=== PATIENT | female | born 1995 | race Caucasian/White ===

== ENCOUNTER 2016-09-29 06:43 | Emergency (ER) | payer OTHER ==
[2016-09-29] MEDS ORDERED: METOCLOPRAMIDE INJ 10MG/2ML VIAL (J2765) As Ordered ONE (07:28)
[2016-09-29 07:45] LABS: BASO # 0.1 K/mm3 (0.0-0.2); BASO % 0.9 % (0.0-1.0); EOS # 0.1 K/mm3 (0.0-0.50); EOS % 0.6 % (0.0-3.0); LARGE UNSTAINED CELL # 0.1 K/mm3 (0.0-0.4); LARGE UNSTAINED CELL % 0.6 % (0.0-4.0); LYMPH # 0.3 K/mm3 (1.5-6.5); LYMPH % 2.2 % (24.0-44.0); MEAN CORPUSCULAR HEMOGLOBIN 31.8 pg (27.0-33.0); MEAN CORPUSCULAR HGB CONC 34.9 g/dl (32.0-36.5); MEAN CORPUSCULAR VOLUME 91.2 fl (80.0-96.0); MONO # 0.5 K/mm3 (0.0-0.8); MONO % 4.5 % (0.0-5.0); NEUTROPHILS # 9.3 K/mm3 (1.8-7.7); NEUTROPHILS % 91.2 % (36.0-66.0); PLATELET COUNT, AUTOMATED 221 k/mm3 (150-450); RED CELL DISTRIBUTION WIDTH 12.2 % (11.5-14.5); WHITE BLOOD COUNT 10.2 K/mm3 (4.0-10.0)
[2016-09-29 08:01] LABS: ANION GAP 10 MEQ/L (8-16); BLOOD UREA NITROGEN 13 MG/DL (7-18); CALCIUM LEVEL 8.5 MG/DL (8.5-10.1); CARBON DIOXIDE LEVEL 25 MEQ/L (21-32); CHLORIDE LEVEL 105 MEQ/L (98-107); CREATININE FOR GFR 0.76 MG/DL (0.55-1.02); GLUCOSE, FASTING 102 MG/DL (70-105); POTASSIUM SERUM 3.6 MEQ/L (3.5-5.1); SODIUM LEVEL 140 MEQ/L (136-145)
--- NOTE | 2016-09-29 09:13 | EDDOCDS ---
Nurse's Notes [facility] Name: Nancy Hunt Age: 20 yrs Sex: Female : 1995 Arrival Date: 09/29/2016 Time: 06:43 Bed I2 / M2 Private MD: Diagnosis: Nausea and vomiting-likely viral gastroenteritis;Diarrhea, unspecified Presentation: 09/29 06:49 Presenting complaint: Patient states: she was awake every half hour throwing up. states nn1 she cannot keep down water. vomiting began at midnight, reports 6 episodes of vomiting. states last episode was at 0500. patient works at [employer]. Suicide/Homicide risk assessment- the patient denies having any suicidal and/or homicidal ideations and does not present with any other emotional, behavioral or mental health complaints. Status: The patient is a dependent. Transition of care: patient was not received from another setting of care. 06:49 Acuity: RADHA Level 3 nn1 06:49 Method Of Arrival: Walkin/Carried/Asstd nn1 Triage Assessment: 06:53 General: Appears in no apparent distress, Behavior is appropriate for age, cooperative. nn1 General: Patient reports recent exposure to resident at [employer] with Cdiff. Pain: Location: abdomen Pain currently is 6 out of 10 on a pain scale. HIV screening NA for this visit. The patient is triaged at the bedside. See Assessment in Nurses Notes section of ED record. Neurological: No deficits noted. Respiratory: Airway is patent Respiratory effort is even, unlabored, Respiratory pattern is regular, symmetrical. GI: Abdomen is non- distended Reports diarrhea, nausea, vomiting, intolerance of food, intolerance of fluids. GI: Bowel sounds present X 4 quads. Derm: Skin is pink, warm & dry. [employer]: 06:55 LMP 09/13/2016 nn1 Historical: - Allergies: No known drug Allergies; - Home Meds: 1. UTI medication - PMHx: UTI; - PSHx: Tonsillectomy; - Social history: Smoking status: Patient states was never smoker of tobacco. No barriers to communication noted, The patient speaks fluent Wallisian, Speaks appropriately for age. - Family history: Not pertinent. - : The pt / caregiver states he / she is not on anticoagulants. Home medication list is obtained from the patient. - Exposure Risk Screening:: None identified. Screenin:09 Screening information is obtained from the patient. Fall risk: No risks identified. k Assistance ADL's: requires no assistance with activities of daily living. Abuse/DV Screen: The patient / caregiver reports he/she is: not in a situation that causes fear, pain or injury. Nutritional screening: No deficits noted. Advance Directives: Currently, there is no health care proxy. There is no active DNR order. There is no living will. There is no Power of Prism Inspector. Advance directive information has not previously been placed in an [facility] medical record. Further advance directive information is declined. home support is adequate. Assessment: 07:09 General: Appears in no apparent distress, ski warm and dry color satisfactory. Moist k pink oral mucosa. Indicates diffuse abd discomfort without significant. increase with palpation. Abd soft and non distended with bowel sounds present x 4.. GI: Abdomen is flat, non- distended Bowel sounds present X 4 quads. Abd is soft X 4 quads Abd is tender to palpation in right upper quadrant, left upper quadrant, right lower quadrant and left lower quadrant. 08:00 General: Appears resting with eyes closed resp easy and regular.. jmk 09:10 General: Appears popsicle taken and retained. receptive to discharge. [facility] Vital Signs: 06:55 BP 103 / 60; Pulse 115; Resp 18; Temp 100.5(T); Pulse Ox 98% on R/A; Weight 68.04 kg; nn1 Height 5 ft. 4 in. (162.56 cm); Pain 7/10; 09:01 BP 95 / 60; Pulse 106; Resp 16; Temp 99.1(TE); Pulse Ox 96% on R/A; Pain 0/10; dem1 06:55 Body Mass Index 25.75 (68.04 kg, 162.56 cm) nn1 Vitals: 06:55 Log In Time: September 29, 2016 at 06:45. nn1 ED Course: 06:45 Patient visited by Erum Ching Reg. hs2 06:45 Patient moved to Waiting hs2 06:48 Patient moved to Triage 1 nn1 06:50 Triage Initiated nn1 07:02 Patient moved to I2 / M2 dwg 07:07 Stef Fairbanks PA-C is PHCP. ar2 07:07 Ned Mariee MD is Attending Physician. ar2 07:09 The patient / caregiver is instructed regarding the plan of care and ED course. jmk 07:11 Patient visited by Stef Fairbanks PA-C. ar2 07:30 Patient visited by Chin Alvarez. dem1 07:30 UA Sent. dem1 07:37 Inserted saline lock: 20 gauge in right antecubital area. jmk 08:36 [facility] [place] [place] Payment Agreement was scanned into [employer] and attached to record. mm15 08:56 Olviia [facility] [place] [facility] is Referral Physician. ar2 09:01 Patient visited by Chin Alvarez. dem1 09:10 Discontinued lock intact, bleeding controlled, pressure dressing applied, No jmk redness/swelling at site. No procedures done that require assistance. Administered Medications: 07:35 Drug: Metoclopramide 10 mg [metoclopramide 5 mg/mL injection solution] Route: IV; Rate: jmk 40 mg/hr; Infused Over: 15 mins; Site: right antecubital; 08:06 Follow up: IV Status: Completed infusion jmk 07:36 Drug: NS 0.9% 1000 ml Route: IV; Rate: bolus; Site: right antecubital; jmk Point of Care Testing: Urine : 07:30 hCG Reading: Negative; Control Reading: Positive; dem1 Ranges: Order Results: Lab Order: UA; SPEC'M 09/29/16 07:26 Test: APPEARANCE, URINE; Value: HAZY; Range: CLEAR; Status: F Test: COLOR, URINE; Value: YELLOW; Range: YELLOW; Status: F Test: PH,URINE; Value: 8.0; Range: 5.0-9.0; Units: UNITS; Status: F Test: SPECIFIC GRAVITY URINE AUTO; Value: 1.025; Range: 1.002-1.035; Status: F Test: PROTEIN, URINE AUTO; Value: 1+; Range: NEGATIVE; Abnormal: Above high normal; Units: mg/dL; Status: F Test: GLUCOSE, URINE (UA) AUTO; Value: NEGATIVE; Range: NEGATIVE; Units: mg/dL; Status: F Test: KETONE, URINE AUTO; Value: 2+; Range: NEGATIVE; Abnormal: Above high normal; Units: mg/dL; Status: F Test: UROBILINOGEN, URINE AUTO; Value: 0.2; Range: 0.0-2.0; Units: mg/dL; Status: F Test: BILIRUBIN, URINE AUTO; Value: NEGATIVE; Range: NEGATIVE; Status: F Test: NITRITE, URINE AUTO; Value: NEGATIVE; Range: NEGATIVE; Status: F Test: LEUKOCYTE ESTERASE, URINE AUTO; Value: 2+; Range: NEGATIVE; Abnormal: Above high normal; Status: F Test: BLOOD, URINE BLOOD; Value: NEGATIVE; Range: NEGATIVE; Status: F Test: WBC, URINE AUTO; Value: 8; Range: 0-3; Abnormal: Above high normal; Units: /HPF; Status: F Test: RBC, URINE AUTO; Value: 4; Range: 0-3; Abnormal: Above high normal; Units: /HPF; Status: F Test: BACTERIA, URINE AUTO; Value: NEGATIVE; Range: NEGATIVE; Status: F Test: SQUAMOUS EPITHELIAL CELL UR AU; Value: 12; Range: 0-6; Units: /HPF; Status: F Test: MUCUS, URINE; Value: SMALL; Range: NEGATIVE; Status: F Test: HYALINE CAST, URINE AUTO; Value: 0; Range: 0-1; Units: /LPF; Status: F Lab Order: CBC with Diff; SPEC'M 09/29/16 07:24 Test: WHITE BLOOD COUNT; Value: 10.2; Range: 4.0-10.0; Abnormal: Above high normal; Units: K/mm3; Status: F Test: RED BLOOD COUNT; Value: 4.06; Range: 4.00-5.40; Units: M/mm3; Status: F Test: HEMOGLOBIN; Value: 12.9; Range: 12.0-16.0; Units: g/dl; Status: F Test: HEMATOCRIT; Value: 37.1; Range: 36.0-47.0; Units: %; Status: F Test: MEAN CORPUSCULAR VOLUME; Value: 91.2; Range: 80.0-96.0; Units: fl; Status: F Test: MEAN CORPUSCULAR HEMOGLOBIN; Value: 31.8; Range: 27.0-33.0; Units: pg; Status: F Test: MEAN CORPUSCULAR HGB CONC; Value: 34.9; Range: 32.0-36.5; Units: g/dl; Status: F Test: RED CELL DISTRIBUTION WIDTH; Value: 12.2; Range: 11.5-14.5; Units: %; Status: F Test: PLATELET COUNT, AUTOMATED; Value: 221; Range: 150-450; Units: k/mm3; Status: F Test: NEUTROPHILS %; Value: 91.2; Range: 36.0-66.0; Abnormal: Above high normal; Units: %; Status: F Test: LYMPH %; Value: 2.2; Range: 24.0-44.0; Abnormal: Below low normal; Units: %; Status: F Test: MONO %; Value: 4.5; Range: 0.0-5.0; Units: %; Status: F Test: EOS %; Value: 0.6; Range: 0.0-3.0; Units: %; Status: F Test: BASO %; Value: 0.9; Range: 0.0-1.0; Units: %; Status: F Test: LARGE UNSTAINED CELL %; Value: 0.6; Range: 0.0-4.0; Units: %; Status: F Test: NEUTROPHILS #; Value: 9.3; Range: 1.8-7.7; Abnormal: Above high normal; Units: K/mm3; Status: F Test: LYMPH #; Value: 0.3; Range: 1.5-6.5; Abnormal: Below low normal; Units: K/mm3; Status: F Test: MONO #; Value: 0.5; Range: 0.0-0.8; Units: K/mm3; Status: F Test: EOS #; Value: 0.1; Range: 0.0-0.50; Units: K/mm3; Status: F Test: BASO #; Value: 0.1; Range: 0.0-0.2; Units: K/mm3; Status: F Test: LARGE UNSTAINED CELL #; Value: 0.1; Range: 0.0-0.4; Units: K/mm3; Status: F Lab Order: MED Profile; SPEC'M 09/29/16 07:24 Test: GLUCOSE, FASTING; Value: 102; Range: 70-105; Units: MG/DL; Status: F Test: BLOOD UREA NITROGEN; Value: 13; Range: 7-18; Units: MG/DL; Status: F Test: CREATININE FOR GFR; Value: 0.76; Range: 0.55-1.02; Units: MG/DL; Status: F Test: SODIUM LEVEL; Value: 140; Range: 136-145; Units: MEQ/L; Status: F Test: POTASSIUM SERUM; Value: 3.6; Range: 3.5-5.1; Units: MEQ/L; Status: F Test: CHLORIDE LEVEL; Value: 105; Range: 98-107; Units: MEQ/L; Status: F Test: CARBON DIOXIDE LEVEL; Value: 25; Range: 21-32; Units: MEQ/L; Status: F Test: ANION GAP; Value: 10; Range: 8-16; Units: MEQ/L; Status: F Test: CALCIUM LEVEL; Value: 8.5; Range: 8.5-10.1; Units: MG/DL; Status: F Outcome: 08:57 Discharge ordered by Provider. ar2 09:10 Discharge Assessment: Patient awake, alert and oriented x 3. No cognitive and/or k functional deficits noted. Patient verbalized understanding of disposition instructions. patient administered narcotics - no. The following High Risk Discharge criteria are identified: None. Discharged to home ambulatory. Condition: good. Discharge instructions given to patient, Instructed on discharge instructions, follow up and referral plans. medication usage, Demonstrated understanding of instructions, medications, Pt was receptive of discharge instructions/ teaching. Prescriptions given X 1. No special radiology studies were completed. Property :Personal belongings accompany Pt. 09:13 Patient left the ED. dorothy Signatures: Ronnie Lopez RN RN Lebron Gibson RN RN jmk Robertshaw, Aaron, PA-Darin PA-C ar2 Chin Alvarez1 Jayson Prieto mm15 Lorraine Drummond RN RN nn1 Erum Ching, Reg Reg hs2 MTDD
--- NOTE | 2016-09-29 09:13 | EDDOCDS ---
Physician Documentation [facility] Name: Nancy Hunt Age: 20 yrs Sex: Female : 1995 Arrival Date: 09/29/2016 Time: 06:43 Bed I2 / M2 Private MD: Disposition: 09/29/16 08:57 Discharged to Home/Self Care. Impression: Nausea and vomiting - likely viral gastroenteritis, Diarrhea, unspecified. - Condition is Stable. - Discharge Instructions: Viral Gastroenteritis. - Prescriptions for ZOFRAN ODT 4 mg - dissolve 1 tablet by ORAL route 4 times per day As needed do not chew, do not swallow whole; 10 tablet. - Medication Reconciliation, Local Pharmacy Hours form. - Follow up: [facility]; When: 2 - 3 days; Reason: Recheck today's complaints. Follow up: Emergency Department; When: As needed; Reason: Fever > 102F, Worsening of conditions. - Problem is new. - Symptoms have improved. Historical: - Allergies: No known drug Allergies; - Home Meds: 1. UTI medication - PMHx: UTI; - PSHx: Tonsillectomy; - Social history: Smoking status: Patient states was never smoker of tobacco. No barriers to communication noted, The patient speaks fluent Polish, Speaks appropriately for age. - Family history: Not pertinent. - : The pt / caregiver states he / she is not on anticoagulants. Home medication list is obtained from the patient. - Exposure Risk Screening:: None identified. 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 4 in. (162.56 cm); Pain 7/10; 09:01 BP 95 / 60; Pulse 106; Resp 16; Temp 99.1(TE); Pulse Ox 96% on R/A; Pain 0/10; dem1 06:55 Body Mass Index 25.75 (68.04 kg, 162.56 cm) nn1 MDM: 07:19 IV Saline Lock ordered. ar2 07:19 NS 0.9% 1000 ml IV at bolus once ordered. ar2 07:19 UCG by Nursing ordered. ar2 07:19 Metoclopramide 10 mg IV at 40 mg/hr once over 15 mins ordered. ar2 07:20 Stool samples ordered. ar2 07:20 UA Ordered. EDMS 07:20 CBC with Diff Ordered. EDMS 07:20 MED Profile Ordered. EDMS 07:50 Fluid Challenge ordered. ar2 07:56 Financial registration complete. mm15 08:02 UA Reviewed. ar2 08:02 CBC with Diff Reviewed. ar2 08:05 MED Profile Reviewed. ar2 08:36 [facility] Payment Agreement was scanned into [employer] and attached to record. mm15 Point of Care Testing: Urine : 07:30 hCG Reading: Negative; Control Reading: Positive; dem1 Ranges: Administered Medications: 07:35 Drug: Metoclopramide 10 mg [metoclopramide 5 mg/mL injection solution] Route: IV; Rate: jmk 40 mg/hr; Infused Over: 15 mins; Site: right antecubital; 08:06 Follow up: IV Status: Completed infusion [facility] 07:36 Drug: NS 0.9% 1000 ml Route: IV; Rate: bolus; Site: right antecubital; jmk Signatures: Dispatcher [employer] Lebron Franco,RN RN Stef Pennington PA-C PA-C ar2 Jayson Prieto mm15 Lorraine DrummondRN RN nn1 The chart was reviewed and I authenticate all verbal orders and agree with the evaluation and treatment provided.Attachments: 08:36 [facility] Payment Agreement mm15 MTDD
--- NOTE | 2016-10-01 10:13 | EDDOCDS ---
Physician Documentation [facility] Name: Nancy Hunt Age: 20 yrs Sex: Female : 1995 Arrival Date: 09/29/2016 Time: 06:43 Bed I2 / M2 Private MD: Disposition: 09/29/16 08:57 Discharged to Home/Self Care. Impression: Nausea and vomiting - likely viral gastroenteritis, Diarrhea, unspecified. - Condition is Stable. - Discharge Instructions: Viral Gastroenteritis. - Prescriptions for ZOFRAN ODT 4 mg - dissolve 1 tablet by ORAL route 4 times per day As needed do not chew, do not swallow whole; 10 tablet. - Medication Reconciliation, Local Pharmacy Hours form. - Follow up: [facility]; When: 2 - 3 days; Reason: Recheck today's complaints. Follow up: Emergency Department; When: As needed; Reason: Fever > 102F, Worsening of conditions. - Problem is new. - Symptoms have improved. Historical: - Allergies: No known drug Allergies; - Home Meds: 1. UTI medication - PMHx: UTI; - PSHx: Tonsillectomy; - Social history: Smoking status: Patient states was never smoker of tobacco. No barriers to communication noted, The patient speaks fluent Turkish, Speaks appropriately for age. - Family history: Not pertinent. - : The pt / caregiver states he / she is not on anticoagulants. Home medication list is obtained from the patient. - Exposure Risk Screening:: None identified. 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 4 in. (162.56 cm); Pain 7/10; 09:01 BP 95 / 60; Pulse 106; Resp 16; Temp 99.1(TE); Pulse Ox 96% on R/A; Pain 0/10; dem1 06:55 Body Mass Index 25.75 (68.04 kg, 162.56 cm) nn1 MDM: 07:19 IV Saline Lock ordered. ar2 07:19 NS 0.9% 1000 ml IV at bolus once ordered. ar2 07:19 UCG by Nursing ordered. ar2 07:19 Metoclopramide 10 mg IV at 40 mg/hr once over 15 mins ordered. ar2 07:20 Stool samples ordered. ar2 07:20 UA Ordered. EDMS 07:20 CBC with Diff Ordered. EDMS 07:20 MED Profile Ordered. EDMS 07:50 Fluid Challenge ordered. ar2 07:56 Financial registration complete. mm15 08:02 UA Reviewed. ar2 08:02 CBC with Diff Reviewed. ar2 08:05 MED Profile Reviewed. ar2 08:36 [facility] Payment Agreement was scanned into [employer] and attached to record. mm15 14:32 T-Sheet-- Draft Copy was scanned into [employer] and attached to record. gb Point of Care Testing: Urine : 07:30 hCG Reading: Negative; Control Reading: Positive; dem1 Ranges: Administered Medications: 07:35 Drug: Metoclopramide 10 mg [metoclopramide 5 mg/mL injection solution] Route: IV; Rate: jmk 40 mg/hr; Infused Over: 15 mins; Site: right antecubital; 08:06 Follow up: IV Status: Completed infusion k 07:36 Drug: NS 0.9% 1000 ml Route: IV; Rate: bolus; Site: right antecubital; [facility] Signatures: Dispatcher [employer] Lebron Franco,RN RN Donna Orourke, Reg Reg gb Stef Fairbanks, AWILDA PACarol ar2 Jayson Prieto mm15 Lorraine Drummond,CORINE RN nn1 The chart was reviewed and I authenticate all verbal orders and agree with the evaluation and treatment provided.Attachments: 08:36 [facility] Payment Agreement mm15 14:32 T-Sheet-- Draft Copy gb Chart Complete MTDD
--- NOTE | 2016-10-01 10:13 | EDDOCDS ---
Nurse's Notes [facility] Name: Nancy Hunt Age: 20 yrs Sex: Female : 1995 Arrival Date: 09/29/2016 Time: 06:43 Bed I2 / M2 Private MD: Diagnosis: Nausea and vomiting-likely viral gastroenteritis;Diarrhea, unspecified Presentation: 09/29 06:49 Presenting complaint: Patient states: she was awake every half hour throwing up. states nn1 she cannot keep down water. vomiting began at midnight, reports 6 episodes of vomiting. states last episode was at 0500. patient works at [employer]. Suicide/Homicide risk assessment- the patient denies having any suicidal and/or homicidal ideations and does not present with any other emotional, behavioral or mental health complaints. Status: The patient is a dependent. Transition of care: patient was not received from another setting of care. 06:49 Acuity: RADHA Level 3 nn1 06:49 Method Of Arrival: Walkin/Carried/Asstd nn1 Triage Assessment: 06:53 General: Appears in no apparent distress, Behavior is appropriate for age, cooperative. nn1 General: Patient reports recent exposure to resident at [employer] with Cdiff. Pain: Location: abdomen Pain currently is 6 out of 10 on a pain scale. HIV screening NA for this visit. The patient is triaged at the bedside. See Assessment in Nurses Notes section of ED record. Neurological: No deficits noted. Respiratory: Airway is patent Respiratory effort is even, unlabored, Respiratory pattern is regular, symmetrical. GI: Abdomen is non- distended Reports diarrhea, nausea, vomiting, intolerance of food, intolerance of fluids. GI: Bowel sounds present X 4 quads. Derm: Skin is pink, warm & dry. 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 UTI medication - PMHx: UTI; - PSHx: Tonsillectomy; - Social history: Smoking status: Patient states was never smoker of tobacco. No barriers to communication noted, The patient speaks fluent Cape Verdean, Speaks appropriately for age. - Family history: Not pertinent. - : The pt / caregiver states he / she is not on anticoagulants. Home medication list is obtained from the patient. - Exposure Risk Screening:: None identified. Screenin:09 Screening information is obtained from the patient. Fall risk: No risks identified. k Assistance ADL's: requires no assistance with activities of daily living. Abuse/DV Screen: The patient / caregiver reports he/she is: not in a situation that causes fear, pain or injury. Nutritional screening: No deficits noted. Advance Directives: Currently, there is no health care proxy. There is no active DNR order. There is no living will. There is no Power of [employer]ovolta[employer] Sub[employer]or. Advance directive information has not previously been placed in an [facility] medical record. Further advance directive information is declined. home support is adequate. Assessment: 07:09 General: Appears in no apparent distress, ski warm and dry color satisfactory. Moist k pink oral mucosa. Indicates diffuse abd discomfort without significant. increase with palpation. Abd soft and non distended with bowel sounds present x 4.. GI: Abdomen is flat, non- distended Bowel sounds present X 4 quads. Abd is soft X 4 quads Abd is tender to palpation in right upper quadrant, left upper quadrant, right lower quadrant and left lower quadrant. 08:00 General: Appears resting with eyes closed resp easy and regular.. jmk 09:10 General: Appears popsicle taken and retained. receptive to discharge. [facility] Vital Signs: 06:55 BP 103 / 60; Pulse 115; Resp 18; Temp 100.5(T); Pulse Ox 98% on R/A; Weight 68.04 kg; nn1 Height 5 ft. 4 in. (162.56 cm); Pain 7/10; 09:01 BP 95 / 60; Pulse 106; Resp 16; Temp 99.1(TE); Pulse Ox 96% on R/A; Pain 0/10; dem1 06:55 Body Mass Index 25.75 (68.04 kg, 162.56 cm) nn1 Vitals: 06:55 Log In Time: September 29, 2016 at 06:45. nn1 ED Course: 06:45 Patient visited by Erum Ching Reg. hs2 06:45 Patient moved to Waiting hs2 06:48 Patient moved to Triage 1 nn1 06:50 Triage Initiated nn1 07:02 Patient moved to I2 / M2 dwg 07:07 Stef Fairbanks PA-C is PHCP. ar2 07:07 Ned Mariee MD is Attending Physician. ar2 07:09 The patient / caregiver is instructed regarding the plan of care and ED course. jmk 07:11 Patient visited by Stef Fairbanks PA-C. ar2 07:30 Patient visited by Chin Alvarez. dem1 07:30 UA Sent. dem1 07:37 Inserted saline lock: 20 gauge in right antecubital area. jmk 08:36 [facility] Payment Agreement was scanned into [employer] and attached to record. mm15 08:56 Olivia [facility] is Referral Physician. ar2 09:01 Patient visited by Chin Alvarez. dem1 09:10 Discontinued lock intact, bleeding controlled, pressure dressing applied, No jmk redness/swelling at site. No procedures done that require assistance. 14:32 T-Sheet-- Draft Copy was scanned into [employer] and attached to record. gb Administered Medications: 07:35 Drug: Metoclopramide 10 mg [metoclopramide 5 mg/mL injection solution] Route: IV; Rate: jmk 40 mg/hr; Infused Over: 15 mins; Site: right antecubital; 08:06 Follow up: IV Status: Completed infusion jmk 07:36 Drug: NS 0.9% 1000 ml Route: IV; Rate: bolus; Site: right antecubital; k Point of Care Testing: Urine : 07:30 hCG Reading: Negative; Control Reading: Positive; dem1 Ranges: Order Results: Lab Order: UA; SPEC'M 09/29/16 07:26 Test: APPEARANCE, URINE; Value: HAZY; Range: CLEAR; Status: F Test: COLOR, URINE; Value: YELLOW; Range: YELLOW; Status: F Test: PH,URINE; Value: 8.0; Range: 5.0-9.0; Units: UNITS; Status: F Test: SPECIFIC GRAVITY URINE AUTO; Value: 1.025; Range: 1.002-1.035; Status: F Test: PROTEIN, URINE AUTO; Value: 1+; Range: NEGATIVE; Abnormal: Above high normal; Units: mg/dL; Status: F Test: GLUCOSE, URINE (UA) AUTO; Value: NEGATIVE; Range: NEGATIVE; Units: mg/dL; Status: F Test: KETONE, URINE AUTO; Value: 2+; Range: NEGATIVE; Abnormal: Above high normal; Units: mg/dL; Status: F Test: UROBILINOGEN, URINE AUTO; Value: 0.2; Range: 0.0-2.0; Units: mg/dL; Status: F Test: BILIRUBIN, URINE AUTO; Value: NEGATIVE; Range: NEGATIVE; Status: F Test: NITRITE, URINE AUTO; Value: NEGATIVE; Range: NEGATIVE; Status: F Test: LEUKOCYTE ESTERASE, URINE AUTO; Value: 2+; Range: NEGATIVE; Abnormal: Above high normal; Status: F Test: BLOOD, URINE BLOOD; Value: NEGATIVE; Range: NEGATIVE; Status: F Test: WBC, URINE AUTO; Value: 8; Range: 0-3; Abnormal: Above high normal; Units: /HPF; Status: F Test: RBC, URINE AUTO; Value: 4; Range: 0-3; Abnormal: Above high normal; Units: /HPF; Status: F Test: BACTERIA, URINE AUTO; Value: NEGATIVE; Range: NEGATIVE; Status: F Test: SQUAMOUS EPITHELIAL CELL UR AU; Value: 12; Range: 0-6; Units: /HPF; Status: F Test: MUCUS, URINE; Value: SMALL; Range: NEGATIVE; Status: F Test: HYALINE CAST, URINE AUTO; Value: 0; Range: 0-1; Units: /LPF; Status: F Lab Order: CBC with Diff; SPEC'M 09/29/16 07:24 Test: WHITE BLOOD COUNT; Value: 10.2; Range: 4.0-10.0; Abnormal: Above high normal; Units: K/mm3; Status: F Test: RED BLOOD COUNT; Value: 4.06; Range: 4.00-5.40; Units: M/mm3; Status: F Test: HEMOGLOBIN; Value: 12.9; Range: 12.0-16.0; Units: g/dl; Status: F Test: HEMATOCRIT; Value: 37.1; Range: 36.0-47.0; Units: %; Status: F Test: MEAN CORPUSCULAR VOLUME; Value: 91.2; Range: 80.0-96.0; Units: fl; Status: F Test: MEAN CORPUSCULAR HEMOGLOBIN; Value: 31.8; Range: 27.0-33.0; Units: pg; Status: F Test: MEAN CORPUSCULAR HGB CONC; Value: 34.9; Range: 32.0-36.5; Units: g/dl; Status: F Test: RED CELL DISTRIBUTION WIDTH; Value: 12.2; Range: 11.5-14.5; Units: %; Status: F Test: PLATELET COUNT, AUTOMATED; Value: 221; Range: 150-450; Units: k/mm3; Status: F Test: NEUTROPHILS %; Value: 91.2; Range: 36.0-66.0; Abnormal: Above high normal; Units: %; Status: F Test: LYMPH %; Value: 2.2; Range: 24.0-44.0; Abnormal: Below low normal; Units: %; Status: F Test: MONO %; Value: 4.5; Range: 0.0-5.0; Units: %; Status: F Test: EOS %; Value: 0.6; Range: 0.0-3.0; Units: %; Status: F Test: BASO %; Value: 0.9; Range: 0.0-1.0; Units: %; Status: F Test: LARGE UNSTAINED CELL %; Value: 0.6; Range: 0.0-4.0; Units: %; Status: F Test: NEUTROPHILS #; Value: 9.3; Range: 1.8-7.7; Abnormal: Above high normal; Units: K/mm3; Status: F Test: LYMPH #; Value: 0.3; Range: 1.5-6.5; Abnormal: Below low normal; Units: K/mm3; Status: F Test: MONO #; Value: 0.5; Range: 0.0-0.8; Units: K/mm3; Status: F Test: EOS #; Value: 0.1; Range: 0.0-0.50; Units: K/mm3; Status: F Test: BASO #; Value: 0.1; Range: 0.0-0.2; Units: K/mm3; Status: F Test: LARGE UNSTAINED CELL #; Value: 0.1; Range: 0.0-0.4; Units: K/mm3; Status: F Lab Order: MED Profile; SPEC'M 09/29/16 07:24 Test: GLUCOSE, FASTING; Value: 102; Range: 70-105; Units: MG/DL; Status: F Test: BLOOD UREA NITROGEN; Value: 13; Range: 7-18; Units: MG/DL; Status: F Test: CREATININE FOR GFR; Value: 0.76; Range: 0.55-1.02; Units: MG/DL; Status: F Test: SODIUM LEVEL; Value: 140; Range: 136-145; Units: MEQ/L; Status: F Test: POTASSIUM SERUM; Value: 3.6; Range: 3.5-5.1; Units: MEQ/L; Status: F Test: CHLORIDE LEVEL; Value: 105; Range: 98-107; Units: MEQ/L; Status: F Test: CARBON DIOXIDE LEVEL; Value: 25; Range: 21-32; Units: MEQ/L; Status: F Test: ANION GAP; Value: 10; Range: 8-16; Units: MEQ/L; Status: F Test: CALCIUM LEVEL; Value: 8.5; Range: 8.5-10.1; Units: MG/DL; Status: F Outcome: 08:57 Discharge ordered by Provider. ar2 09:10 Discharge Assessment: Patient awake, alert and oriented x 3. No cognitive and/or k functional deficits noted. Patient verbalized understanding of disposition instructions. patient administered narcotics - no. The following High Risk Discharge criteria are identified: None. Discharged to home ambulatory. Condition: good. Discharge instructions given to patient, Instructed on discharge instructions, follow up and referral plans. medication usage, Demonstrated understanding of instructions, medications, Pt was receptive of discharge instructions/ teaching. Prescriptions given X 1. No special radiology studies were completed. Property :Personal belongings accompany Pt. 09:13 Patient left the ED. dorothy Signatures: Ronnie Lopez RN Lebron Orellana RN RN jmk Barnhardt, Gloria, Reg Reg gb Stef Fairbanks PA-C PACarol ar2 Chin Alvarez dem1 Jayson Prieto mm15 Lorraine DrummondRN RN nn1 Erum Ching, Reg Reg hs2 Chart Complete MTDD
--- NOTE | 2016-10-01 10:13 | EDDOCDS ---
Physician Documentation [facility] Name: Nancy Hunt Age: 20 yrs Sex: Female : 1995 Arrival Date: 09/29/2016 Time: 06:43 Bed I2 / M2 Private MD: Disposition: 09/29/16 08:57 Discharged to Home/Self Care. Impression: Nausea and vomiting - likely viral gastroenteritis, Diarrhea, unspecified. - Condition is Stable. - Discharge Instructions: Viral Gastroenteritis. - Prescriptions for ZOFRAN ODT 4 mg - dissolve 1 tablet by ORAL route 4 times per day As needed do not chew, do not swallow whole; 10 tablet. - Medication Reconciliation, Local Pharmacy Hours form. - Follow up: [facility]; When: 2 - 3 days; Reason: Recheck today's complaints. Follow up: Emergency Department; When: As needed; Reason: Fever > 102F, Worsening of conditions. - Problem is new. - Symptoms have improved. Historical: - Allergies: No known drug Allergies; - Home Meds: 1. UTI medication - PMHx: UTI; - PSHx: Tonsillectomy; - Social history: Smoking status: Patient states was never smoker of tobacco. No barriers to communication noted, The patient speaks fluent Sami, Speaks appropriately for age. - Family history: Not pertinent. - : The pt / caregiver states he / she is not on anticoagulants. Home medication list is obtained from the patient. - Exposure Risk Screening:: None identified. 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 4 in. (162.56 cm); Pain 7/10; 09:01 BP 95 / 60; Pulse 106; Resp 16; Temp 99.1(TE); Pulse Ox 96% on R/A; Pain 0/10; dem1 06:55 Body Mass Index 25.75 (68.04 kg, 162.56 cm) nn1 MDM: 07:19 IV Saline Lock ordered. ar2 07:19 NS 0.9% 1000 ml IV at bolus once ordered. ar2 07:19 UCG by Nursing ordered. ar2 07:19 Metoclopramide 10 mg IV at 40 mg/hr once over 15 mins ordered. ar2 07:20 Stool samples ordered. ar2 07:20 UA Ordered. EDMS 07:20 CBC with Diff Ordered. EDMS 07:20 MED Profile Ordered. EDMS 07:50 Fluid Challenge ordered. ar2 07:56 Financial registration complete. mm15 08:02 UA Reviewed. ar2 08:02 CBC with Diff Reviewed. ar2 08:05 MED Profile Reviewed. ar2 08:36 [facility] [place] [facility] Payment Agreement was scanned into [employer] and attached to record. mm15 14:32 T-Sheet-- Draft Copy was scanned into [employer] and attached to record. gb Point of Care Testing: Urine : 07:30 hCG Reading: Negative; Control Reading: Positive; dem1 Ranges: Administered Medications: 07:35 Drug: Metoclopramide 10 mg [metoclopramide 5 mg/mL injection solution] Route: IV; Rate: jmk 40 mg/hr; Infused Over: 15 mins; Site: right antecubital; 08:06 Follow up: IV Status: Completed infusion k 07:36 Drug: NS 0.9% 1000 ml Route: IV; Rate: bolus; Site: right antecubital; [facility] Signatures: Dispatcher [employer] Lebron Franco,RN RN Donna Orourke, Reg Reg gb Stef Fairbanks, AWILDA PACarol ar2 Jayson Prieto mm15 Lorraine Drummond,CORINE RN nn1 The chart was reviewed and I authenticate all verbal orders and agree with the evaluation and treatment provided.Attachments: 08:36 [facility] Payment Agreement mm15 14:32 T-Sheet-- Draft Copy gb Chart Complete MTDD
== END 2016-09-29 09:13 | disposition home or self-care (01) ==
LOC: M ED 06:43
DX: A08.4 Viral intestinal infection, unspecified (principal); Z87.440 Personal history of urinary (tract) infections
CPT/HCPCS: 80048; 81001; 81025; 85025; 96365; 99284; J2765

== ENCOUNTER 2017-01-14 15:03 | Emergency (ER) | payer OTHER ==
[~2017-01-14] VITALS: Ht 160 cm; Wt 68.0 kg
[2017-01-14] MEDS ORDERED: PRENTAB40 PO (15:09)
[2017-01-14 16:35] LABS: BASO % 0.5 % (0.0-1.0); EOS # 0.2 K/mm3 (0.0-0.50); EOS % 1.7 % (0.0-3.0); LARGE UNSTAINED CELL # 0.1 K/mm3 (0.0-0.4); LARGE UNSTAINED CELL % 1.3 % (0.0-4.0); LYMPH # 2.4 K/mm3 (1.5-6.5); LYMPH % 23.2 % (24.0-44.0); MEAN CORPUSCULAR HEMOGLOBIN 32.2 pg (27.0-33.0); MEAN CORPUSCULAR VOLUME 92.1 fl (80.0-96.0); MONO # 0.4 K/mm3 (0.0-0.8); MONO % 3.9 % (0.0-5.0); NEUTROPHILS # 6.9 K/mm3 (1.8-7.7); NEUTROPHILS % 69.5 % (36.0-66.0); PLATELET COUNT, AUTOMATED 304 k/mm3 (150-450); RED CELL DISTRIBUTION WIDTH 11.5 % (11.5-14.5); WHITE BLOOD COUNT 9.9 K/mm3 (4.0-10.0)
[2017-01-14 17:08] LABS: ALBUMIN 4.1 GM/DL (3.2-5.2); ALBUMIN/GLOBULIN RATIO 1.41 (1.00-1.93); ALKALINE PHOSPHATASE 82 U/L (45-117); ALT/SGPT 26 U/L (12-78); ANION GAP 7 MEQ/L (8-16); AST/SGOT 21 U/L (15-37); BILIRUBIN,TOTAL 0.3 MG/DL (0.2-1.0); BLOOD UREA NITROGEN 11 MG/DL (7-18); CALCIUM LEVEL 8.2 MG/DL (8.5-10.1); CARBON DIOXIDE LEVEL 24 MEQ/L (21-32); CHLORIDE LEVEL 105 MEQ/L (98-107); CREATININE FOR GFR 0.52 MG/DL (0.55-1.02); GLUCOSE, FASTING 84 MG/DL (70-105); HCG, SERUM QUANTITATIVE 33910 MIU/ML; POTASSIUM SERUM 3.8 MEQ/L (3.5-5.1); SODIUM LEVEL 136 MEQ/L (136-145)
[2017-01-14 18:28] VITALS: BP 120/65
--- NOTE | 2017-01-14 19:20 | REPUSA ---
CLINICAL HISTORY: Pain. TECHNIQUE: Realtime sonographic images were obtained in multiple projections. FINDINGS: A single, living, intrauterine was identified utilizing transabdominal imaging technique. The estimated gestational age is 6 weeks 2 days, based on a pole measurement of 6 mm. The feta l heart rate was documented at 130 bpm. No subchorionic hemorrhage was identified. Evaluation of the maternal adnexal and cul-de-sac regions revealed no abnormalities. Based on today' s examination, the estimated date of delivery is 09/07/17. Although a complete anatomical survey is not possible at this gestational age, no gross anomalies were identified. A repeat scan at 19- 20 weeks for a detailed anatomical survey is recommended. IMPRESSION: Single live IUP dated at 6 weeks and 2 days. Complete anatomic screening is recommended at 20 weeks. Thank you for your kind referral of this patient. We appreciate the opportunity to participate in thi s patient's care.
== END 2017-01-14 18:29 | disposition home or self-care (01) ==
LOC: M ED 17:07
DX: O26.891 Other specified pregnancy related conditions, first trimester (principal); R10.9 Unspecified abdominal pain; Z3A.01 Less than 8 weeks gestation of pregnancy

== ENCOUNTER 2017-02-10 10:08 | Emergency (ER) | payer OTHER ==
[~2017-02-10] VITALS: Ht 160 cm; Wt 68.0 kg
[~2017-02-10 10:08] MED LIST: PRENTAB40 PO
[2017-02-10 10:09] VITALS: BP 105/57
[2017-02-10 11:25] LABS: BASO % 0.3 % (0.0-1.0); EOS # 0.1 K/mm3 (0.0-0.50); EOS % 0.8 % (0.0-3.0); LARGE UNSTAINED CELL # 0.1 K/mm3 (0.0-0.4); LARGE UNSTAINED CELL % 1.4 % (0.0-4.0); LYMPH % 23.2 % (24.0-44.0); MEAN CORPUSCULAR HEMOGLOBIN 32.3 pg (27.0-33.0); MEAN CORPUSCULAR HGB CONC 35.4 g/dl (32.0-36.5); MEAN CORPUSCULAR VOLUME 91.4 fl (80.0-96.0); MONO # 0.3 K/mm3 (0.0-0.8); NEUTROPHILS # 5.6 K/mm3 (1.8-7.7); NEUTROPHILS % 70.3 % (36.0-66.0); PLATELET COUNT, AUTOMATED 260 k/mm3 (150-450); RED CELL DISTRIBUTION WIDTH 11.8 % (11.5-14.5)
[2017-02-10 11:38] LABS: ANION GAP 4 MEQ/L (8-16); BLOOD UREA NITROGEN 9 MG/DL (7-18); CALCIUM LEVEL 8.5 MG/DL (8.5-10.1); CARBON DIOXIDE LEVEL 27 MEQ/L (21-32); CHLORIDE LEVEL 106 MEQ/L (98-107); CREATININE FOR GFR 0.57 MG/DL (0.55-1.02); GLUCOSE, FASTING 78 MG/DL (70-105); HCG, SERUM QUANTITATIVE 56546 MIU/ML; SODIUM LEVEL 137 MEQ/L (136-145)
[2017-02-10] MEDS ORDERED: MACR100C3 PO ×3 (12:39→12:55)
[2017-02-10] MEDS ORDERED: NITROFURANTOIN (MACROBID) 100 MG CAP PO ONE (12:45)
--- NOTE | 2017-02-10 14:15 | REP ---
FIRST TRIMESTER ULTRASOUND: HISTORY: Vaginal bleeding. A single intrauterine is present. [place]-rump length is 3.6 cm, correspond to a gestational age of 10 weeks 3 days. heart rate is 169 beats per minute. There is no subchorionic hemorrhage. The adnexa and cul-de-sac are normal in appearance. IMPRESSION: There is a single intrauterine with a gestational age by ultrasound of 10 weeks 3 days. A repeat examination in 19-20 weeks is recommended for further evaluation. Signed by Jamshid Jane MD 02/10/2017 02:24 P
== END 2017-02-10 13:01 | disposition home or self-care (01) ==
LOC: M ED 11:39
DX: O23.41 Unspecified infection of urinary tract in pregnancy, first trimester (principal); Z3A.10 10 weeks gestation of pregnancy

== ENCOUNTER 2017-03-22 09:06 | Emergency (ER) | payer OTHER ==
[~2017-03-22] VITALS: Ht 162.6 cm; Wt 69.0 kg
[~2017-03-22 09:06] MED LIST changes: +MACR100C43 PO
[2017-03-22] MEDS ORDERED: NS 1,000 ML IV ONE (09:45)
[2017-03-22] MEDS ORDERED: METOCLOPRAMIDE INJ 10MG/2ML VIAL (J2765) IV ONE (09:45)
[2017-03-22 10:12] LABS: BASO % 0.3 % (0.0-1.0); EOS # 0.1 K/mm3 (0.0-0.50); EOS % 0.7 % (0.0-3.0); LARGE UNSTAINED CELL # 0.1 K/mm3 (0.0-0.4); LARGE UNSTAINED CELL % 0.9 % (0.0-4.0); LYMPH # 1.5 K/mm3 (1.5-6.5); LYMPH % 14.2 % (24.0-44.0); MEAN CORPUSCULAR HEMOGLOBIN 33.6 pg (27.0-33.0); MEAN CORPUSCULAR HGB CONC 36.4 g/dl (32.0-36.5); MEAN CORPUSCULAR VOLUME 92.4 fl (80.0-96.0); MONO # 0.4 K/mm3 (0.0-0.8); MONO % 3.8 % (0.0-5.0); NEUTROPHILS # 8.5 K/mm3 (1.8-7.7); NEUTROPHILS % 80.2 % (36.0-66.0); PLATELET COUNT, AUTOMATED 279 k/mm3 (150-450); RED CELL DISTRIBUTION WIDTH 11.7 % (11.5-14.5); WHITE BLOOD COUNT 10.6 K/mm3 (4.0-10.0)
--- NOTE | 2017-03-22 10:30 | REP ---
Urinary tract sonogram: History: Right flank pain. History of kidney infections. Abdominal and flank pain. Trace of blood in the urine. Comparison: No comparison study Findings: Scanning at the level of the urinary bladder shows no abnormality. Renal cortical echogenicity pattern is normal bilaterally and contours are smooth. There is no evidence of hydronephrosis, cyst, mass, or calculus in either kidney. The right kidney measures 11.9 x 4.8 x 4.2 cm. Left renal dimensions are 11.9 x 5.0 x 4.8 cm. Impression: Normal urinary tract sonography. Signed by Georgi Flynn MD 03/22/2017 10:22 A
[2017-03-22 10:46] LABS: ALBUMIN 3.4 GM/DL (3.2-5.2); ALBUMIN/GLOBULIN RATIO 0.94 (1.00-1.93); ALKALINE PHOSPHATASE 59 U/L (45-117); ALT/SGPT 31 U/L (12-78); ANION GAP 5 MEQ/L (8-16); AST/SGOT 26 U/L (15-37); BILIRUBIN,TOTAL 0.4 MG/DL (0.2-1.0); BLOOD UREA NITROGEN 8 MG/DL (7-18); CALCIUM LEVEL 8.4 MG/DL (8.5-10.1); CARBON DIOXIDE LEVEL 28 MEQ/L (21-32); CHLORIDE LEVEL 105 MEQ/L (98-107); CREATININE FOR GFR 0.48 MG/DL (0.55-1.02); GLUCOSE, FASTING 69 MG/DL (70-105); HCG, SERUM QUANTITATIVE 11296 MIU/ML; POTASSIUM SERUM 3.9 MEQ/L (3.5-5.1); SODIUM LEVEL 138 MEQ/L (136-145)
--- NOTE | 2017-03-22 10:55 | REP ---
REASON FOR EXAM: Vaginal bleeding. Multiple ultrasonographic images of the gravid uterus show a single living intrauterine gestation in the phillip breech presentation. Doppler interrogation of the heart shows a heart rate of 160 beats per minute. The placenta is posterior and low lying, but without phillip evidence of previa. There is no evidence of abruption. These subjective amniotic fluid volume is within normal limits. The cervix measures 3.6 cm in length and is closed. Evaluation of the maternal adnexal spaces revealed no abnormalities. BPD 3.4 cm = 16 weeks 3 days HC 13.0 cm = 16 weeks 4 days AC 10.7 cm = 16 weeks 4 days FL 2.1 cm = 16 weeks 1 day The estimated weight is 157 grams which is at the 63rd percentile for a 16 week 0 day gestational age. The fetus was too small for a anatomical screen. IMPRESSION: Single living intrauterine gestation as described above with an estimated gestational age of 16 weeks 3 days via composite criteria and a estimated date of delivery of 09/03/2017 by today's exam. anatomical screen can be performed at 20 to 22 weeks gestational age. There is evidence of a low lying placenta which requires followup. Signed by Carter Beckwith DO 03/22/2017 11:07 A
[2017-03-22] MEDS ORDERED: cefTRIAXone SOD 1 GM VIAL (J0696) As Ordered ONE (11:11)
[2017-03-22] MEDS ORDERED: MACR100C43 PO (11:32)
[2017-03-22 11:41] VITALS: BP 104/56
[2017-03-22] MEDS ORDERED: cefTRIAXone SOD 1 GM in D5W MINI-BAG PLUS 50 ML IV ONE (12:00)
== END 2017-03-22 12:09 | disposition home or self-care (01) ==
LOC: M ED 09:06
DX: O23.40 Unspecified infection of urinary tract in pregnancy, unspecified trimester (principal); Z87.440 Personal history of urinary (tract) infections; Z3A.16 16 weeks gestation of pregnancy; Z79.899 Other long term (current) drug therapy
CPT/HCPCS: 76775; 76811; 76817; 80053; 81001; 84702; 85025; 86850; 86900; 86901; 87088; 87186; 96361; 96365; 96374; 99283; J0696; J2765

== ENCOUNTER → 2018-03-21 | Outpatient (REF) | payer OTHER ==
[2018-03-21 21:57] LABS: CHLAMYDIA DNA AMPLIFICATION NEGATIVE (NEGATIVE); GC DNA AMPLIFICATION NEGATIVE (NEGATIVE)
== END ==
LOC: M SFHCLERA 18:04
DX: J02.9 Acute pharyngitis, unspecified (principal)

== ENCOUNTER 2018-04-19 20:57 | Emergency (ER) | payer OTHER | END 2018-04-20 01:03 | disposition home or self-care (01) | LOC: M ED 20:57 | DX: O9A.211 Injury, poisoning and certain other consequences of external causes complicating pregnancy, first trimester (principal); S39.012A Strain of muscle, fascia and tendon of lower back, initial encounter; X50.1XXA Overexertion from prolonged static or awkward postures, initial encounter; Y92.89 Other specified places as the place of occurrence of the external cause; Z3A.10 10 weeks gestation of pregnancy; Z87.440 Personal history of urinary (tract) infections | CPT/HCPCS: 99282 ==

== ENCOUNTER 2018-06-29 13:28 | Emergency (ER) | payer OTHER | END 2018-06-29 15:14 | disposition left against medical advice (07) | LOC: M ED 13:28 | DX: R51 Headache (principal); Z53.21 Procedure and treatment not carried out due to patient leaving prior to being seen by health care provider ==

== ENCOUNTER 2018-08-08 10:37 | Outpatient (CLI) | payer OTHER ==
[~2018-08-08] VITALS: Ht 162.6 cm; Wt 80.4 kg
[~2018-08-08 10:37] MED LIST changes: +VITA50TA43 PO
[2018-08-08 10:54] VITALS: BP 107/59
[2018-08-08] MEDS ORDERED: FERR325T3 PO (11:11)
[2018-08-08] MEDS ORDERED: LR 1,000 ML IV ONE (11:30)
[2018-08-08] MEDS ORDERED: ONDANSETRON 4MG/2ML VIAL (J2405) IV ONE (11:30)
[2018-08-08 11:55] LABS: HEMATOCRIT 31.9 % (36.0-47.0); HEMOGLOBIN 11.2 g/dl (12.0-15.5); MEAN CORPUSCULAR HEMOGLOBIN 32.5 pg (27.0-33.0); MEAN CORPUSCULAR HGB CONC 35.1 g/dl (32.0-36.5); MEAN CORPUSCULAR VOLUME 92.5 fl (80.0-96.0); PLATELET COUNT, AUTOMATED 214 10^3/uL (150-450); RED BLOOD COUNT 3.45 10^6/uL (4.00-5.40); WHITE BLOOD COUNT 9.6 10^3/uL (4.0-10.0)
[2018-08-08 11:58] LABS: APPEARANCE, URINE CLEAR (CLEAR); BACTERIA, URINE AUTO NEGATIVE (NEGATIVE); BILIRUBIN, URINE AUTO NEGATIVE (NEGATIVE); BLOOD, URINE BLOOD NEGATIVE (NEGATIVE); COLOR, URINE YELLOW (YELLOW); GLUCOSE, URINE (UA) AUTO NEGATIVE (NEGATIVE); KETONE, URINE AUTO 1+ mg/dL (NEGATIVE); LEUKOCYTE ESTERASE, URINE AUTO NEGATIVE (NEGATIVE); MUCUS, URINE SMALL (NEGATIVE); NITRITE, URINE AUTO NEGATIVE (NEGATIVE); PROTEIN, URINE AUTO NEGATIVE (NEGATIVE); RBC, URINE AUTO 1 /HPF (0-3); SPECIFIC GRAVITY URINE AUTO 1.024 (1.002-1.035); SQUAMOUS EPITHELIAL CELL UR AU 2 /HPF (0-6); UROBILINOGEN, URINE AUTO 0.2 mg/dL (0.0-2.0); WBC, URINE AUTO 1 /HPF (0-3)
[2018-08-08] MEDS ORDERED: ACETAMINOPHEN 325 MG TAB PO ONE (12:15)
[2018-08-08 12:24] VITALS: BP 101/55
[2018-08-08 13:27] LABS: ALBUMIN 2.6 GM/DL (3.2-5.2); ALT/SGPT 17 U/L (12-78); BILIRUBIN,TOTAL 0.4 MG/DL (0.2-1.0); BLOOD UREA NITROGEN 7 MG/DL (7-18); CALCIUM LEVEL 7.1 MG/DL (8.5-10.1); CARBON DIOXIDE LEVEL 22 MEQ/L (21-32); CHLORIDE LEVEL 104 MEQ/L (98-107); CREATININE FOR GFR 0.47 MG/DL (0.55-1.30); GLOMERULAR FILTRATION RATE > 60.0 (>60); GLUCOSE, FASTING 78 MG/DL (70-100); POTASSIUM SERUM 3.7 MEQ/L (3.5-5.1); SODIUM LEVEL 135 MEQ/L (136-145); TOTAL PROTEIN 5.5 GM/DL (6.4-8.2)
--- NOTE | 2018-08-08 14:13 | IPNPDOC ---
Text Note Date of Service The patient was seen on 08/08/18. NOTE 22 yo at 25+6 weeks presented to L&D with the complaint of intermittent nausea, dizziness, and headache over the last week. She has also had loose stools but no blood in her stool. She has struggled with nausea throughout her , and she believes her PNVs are exacerbating this. She denies any fevers at home or actual vomiting. She has felt hungry and has been tolerating a regular diet. She denies any sick contacts or recent travel. She has had intermittent pelvic cramping but nothing significant. She also denies any vaginal bleeding, discharge, or leakage of fluid. She endorses movement. Vitals - HR 100s, BP 100s/50s, t 99.3, then 98.9 on repeat, R 18, >95% on RA General - AAOX3, laying in bed, NAD Abdomen - Fundus firm without tenderness. Abdomen not distended. No tenderness to palpation throughout the entire abdomen. Extremities - No edema FHR: BL 150s, moderate variability, Reassuring for gestational age Labs: UA - SG 1.024, neg nitrites, neg bacteria CBC - 9.6>11.2/31.9<214 BMP - 135/3.7--104/22--7/0.47<78 AST/ALT - 20/17 Suspect viral syndrome and/or gastroenteritis. No evidence of acute bacterial infection. UA consistent with dehydration, and her symptoms improved after IV zofran, fluids, and PO Tylenol. WBC count not elevated and electrolytes within normal. Reassuring status. Will send home with PO zofran. Recommended aggressive hydration at home and rest. She may stop PNVs as they are making her nauseous. Discharge home with return precautions. Caitlyn Chow, VS,Fishbone, I+O VS, Fishbone, I+O Laboratory Tests 08/08/18 11:39 Red Blood Count 3.45 L, Mean Corpuscular Volume 92.5, Mean Corpuscular Hemoglobin 32.5, Mean Corpuscular Hemoglobin Concent 35.1, Red Cell Distribution Width 12.0 08/08/18 12:31 Calcium Level 7.1 L, Aspartate Amino Transf (AST/SGOT) 20, Alanine Aminotransferase (ALT/SGPT) 17, Alkaline Phosphatase 74, Total Bilirubin 0.4, Total Protein 5.5 L, Albumin 2.6 L Vital Signs Date Time Temp Pulse Resp B/P (MAP) Pulse Ox O2 Delivery O2 Flow Rate FiO2 08/08/18 12:24 98.9 106 18 101/55 (70) CAITLYN CHOW DO Aug 08, 2018 14:13
[2018-08-08 14:33] VITALS: BP 101/58
== END 2018-08-08 14:45 | disposition home or self-care (01) ==
LOC: M LDO 10:37
PROVIDERS: ATTEND Obstetrics & Gynecology
DX: O21.9 Vomiting of pregnancy, unspecified (principal); O26.899 Other specified pregnancy related conditions, unspecified trimester; R51 Headache; Z3A.25 25 weeks gestation of pregnancy
CPT/HCPCS: 36415; 80053; 81001; 85027; 96360; 96361; 96375; G0378; G0463; J2405